=== PATIENT | female | born 1945 | race Caucasian/White ===

== ENCOUNTER 2017-03-21 13:59 | Emergency (ER) | payer MEDICAID ==
[2017-03-21 17:12] VITALS: BP 140/73
== END 2017-03-21 17:12 | disposition home or self-care (01) ==
LOC: ED 13:59
DX: R11.2 Nausea with vomiting, unspecified (principal); R10.13 Epigastric pain
CPT/HCPCS: J1885; Q0162

== ENCOUNTER 2017-10-25 06:00 | Emergency (ER) | payer MEDICAID ==
[~2017-10-25] VITALS: Ht 149.9 cm; Wt 55.8 kg
[2017-10-25 06:18] VITALS: Ht 149.9 cm; Wt 55.8 kg
[2017-10-25 06:49] VITALS: BP 156/80
== END 2017-10-25 06:49 | disposition home or self-care (01) ==
LOC: ED 06:00
DX: B02.8 Zoster with other complications (principal)

== ENCOUNTER 2018-09-26 09:48 | Emergency (ER) | payer MEDICAID ==
[~2018-09-26] VITALS: Ht 149.9 cm; Wt 56.2 kg
[2018-09-26 09:53] VITALS: Ht 149.9 cm; Wt 56.2 kg
[2018-09-26 10:58] LABS: CARBON DIOXIDE 25.5 mmol/L (21-32); CHLORIDE SERUM 109 mmol/L (98-107); CREATININE SERUM 0.7 mg/dL (0.6-1.0); GFR1 > 60 mL/min; GLUCOSE SERUM 105 mg/dL (74-106); SODIUM SERUM 145 mmol/L (136-145)
[2018-09-26 11:01] LABS: BASOPHIL % 0.8 % (0-2); PLATELET COUNT 276 x10^3mcL (130-400)
[2018-09-26 11:04] LABS: ALBUMIN 3.7 g/dL (3.4-5.0); ALKALINE PHOSPHATASE 68 U/L (46-116); ALT/SGPT 21 U/L (14-59); AST/SGOT 18 U/L (15-37); BILIRUBIN TOTAL 0.5 mg/dL (0.20-1.00); LIPASE 109 IU/L (73-393); TOTAL PROTEIN, SERUM 6.9 g/dL (6.4-8.2)
[2018-09-26 11:10] LABS: RED CELL DISTRIBUTION WIDTH 14.7 % (11.5-14.5)
[2018-09-26 11:47] VITALS: BP 124/45
== END 2018-09-26 11:47 | disposition home or self-care (01) ==
LOC: ED 09:48
PROVIDERS: Emergency Medicine
DX: R42 Dizziness and giddiness (principal); R11.2 Nausea with vomiting, unspecified; R51 Headache; M19.90 Unspecified osteoarthritis, unspecified site
CPT/HCPCS: J2405; J7030; J8597

== ENCOUNTER 2019-04-18 12:52 | Emergency (ER) | payer MEDICAID ==
[~2019-04-18] VITALS: Ht 152.4 cm; Wt 53.1 kg
[2019-04-18 13:09] VITALS: Ht 152.4 cm; Wt 53.1 kg
[2019-04-18 14:33] LABS: CALCIUM 8.9 mg/dL (8.5-10.1); CHLORIDE SERUM 108 mmol/L (98-107); CREATININE SERUM 0.7 mg/dL (0.6-1.0); GLUCOSE SERUM 140 mg/dL (74-106); POTASSIUM SERUM 3.8 mmol/L (3.5-5.1); SODIUM SERUM 142 mmol/L (136-145)
[2019-04-18 14:41] LABS: BASOPHIL % 0.4 % (0-2); PLATELET COUNT 302 x10^3mcL (130-400); RED CELL DISTRIBUTION WIDTH 13.9 % (11.5-14.5)
[2019-04-18 14:45] LABS: ALBUMIN 3.7 g/dL (3.4-5.0); ALKALINE PHOSPHATASE 97 U/L (46-116); ALT/SGPT 23 U/L (14-59); AST/SGOT 19 U/L (15-37); BILIRUBIN TOTAL 0.4 mg/dL (0.20-1.00); CHOLESTEROL 210 mg/dL (<200); HDL CHOLESTEROL 59 mg/dL (40-60); LIPASE 172 IU/L (73-393); MAGNESIUM 1.9 mg/dL (1.8-2.4); T4(THYROXINE) 4.7 ug/dL (4.7-13.3); TOTAL PROTEIN, SERUM 7.5 g/dL (6.4-8.2)
[2019-04-18 15:03] LABS: UA SPECIFIC GRAVITY 1.015 (1.005-1.035); microscopic required? YES; urine erythrocyte NEGATIVE (NEGATIVE)
[2019-04-18 15:23] LABS: AMPHETAMINE QUAL UR NONE DETECTED (See below)
[2019-04-18 15:59] VITALS: BP 138/59
== END 2019-04-18 15:59 | disposition home or self-care (01) ==
LOC: ED 12:52
PROVIDERS: Emergency Medicine
DX: R42 Dizziness and giddiness (principal); R51 Headache; R11.10 Vomiting, unspecified
CPT/HCPCS: 82962; J7030; J8597; Q0092